=== PATIENT | female | born 1950 | race Caucasian/White ===

== ENCOUNTER 2022-09-02 15:01 | Emergency (ER) | payer MEDICARE, OTHER ==
[~2022-09-02] VITALS: Ht 165.1 cm; Wt 75.0 kg
[2022-09-02 15:36] VITALS: BP 111/63
[2022-09-02 18:10] LABS: Basophils # (auto) 0 10 ^3/uL (0-0.2); Basophils % (auto) 0.7 % (0.0-2.0); Eosinophils # (auto) 0.1 10 ^3/uL (0-0.8); Eosinophils % (auto) 1.3 % (0.0-7.0); Hematocrit 39.2 % (36.0-46.0); Hemoglobin 13.2 g/dL (12.2-16.2); Lymphocytes # (auto) 1.2 10 ^3/uL (0.4-5.4); Lymphocytes % (auto) 18.4 % (10.0-50.0); Mean Corpuscular Hemoglobin 31.4 pg (28.0-32.0); Mean Corpuscular Hgb Conc. 33.8 g/dL (32.0-36.0); Monocytes # (auto) 0.4 10 ^3/uL (0-1.3); Monocytes % (auto) 6.4 % (0.0-12.0); Neutrophils # (auto) 4.9 10 ^3/uL (1.6-8.6); Neutrophils % (auto) 73.2 % (37.0-80.0); Nucleated Red Blood Cells % 0.1 %; Red Blood Cells 4.21 10^6/uL (4.0-5.20); Red Cell Distribution Width 13.4 % (11.8-14.3); White Blood Cell 6.7 10^3/uL (4.4-10.8)
[2022-09-02 18:25] LABS: Albumin 3.9 g/dL (3.4-5.0); Calcium 9.7 mg/dL (8.5-10.1); Magnesium 2.7 mg/dL (1.6-2.6)
[2022-09-02 18:27] LABS: Bilirubin, Total 0.4 mg/dL (0.2-1.0)
[2022-09-02] MEDS ORDERED: MECL12.514 PO (18:42)
[2022-09-02 20:10] LABS: Potassium 2.2 mmol/L (3.5-5.1)
[2022-09-02 20:49] LABS: Urine Bacteria NONE SEEN /hpf (None Seen); Urine WBC 30 /hpf (0 - 5)
[2022-09-02 20:50] LABS: Urine Blood Trace /uL (Negative)
[2022-09-02] MEDS ORDERED: NITR-87 PO (20:52)
[2022-09-02] MEDS ORDERED: NITROFURANTOIN 100 mg CAP PO ONE (21:00)
== END 2022-09-02 21:08 | disposition home or self-care (01) ==
LOC: ER 15:01
DX: R42 Dizziness and giddiness (principal); R07.81 Pleurodynia; I12.9 Hypertensive chronic kidney disease with stage 1 through stage 4 chronic kidney disease, or unspecified chronic kidney disease; N18.9 Chronic kidney disease, unspecified; E78.5 Hyperlipidemia, unspecified; I25.2 Old myocardial infarction; Z90.710 Acquired absence of both cervix and uterus; Z88.0 Allergy status to penicillin; Z88.6 Allergy status to analgesic agent
CPT/HCPCS: 36415; 70450; 71101; 80053; 81001; 83735; 85025; 93005